=== PATIENT | female | born 1955 | race Hispanic/Latino ===

== ENCOUNTER 2017-02-09 17:04 | Emergency (ER) | payer OTHER ==
[~2017-02-09] VITALS: Ht 162.6 cm; Wt 91.9 kg
[~2017-02-09 17:04] MED LIST: CITA20TA PO; TRAZ-151 PO
[2017-02-09 17:13] VITALS: BP 151/84; PULSE 111; RESP 20; O2SAT 100
[2017-02-09] MEDS ORDERED: Ondansetron 2 mg/mL 2 mL Inj IV PRN (17:25)
[2017-02-09] MEDS ORDERED: 0.9% Sodium Chloride 1,000 ML IV ONE (17:25)
--- NOTE | 2017-02-09 17:25 | ED.REPORT ---
HPI-General Illness Date of Service February 09, 2017 ED Provider: Dr. David Sol MD A 61 year old female with a history of hypertension and depression presents to the ED with a fever that began 3 days ago. Patient was seen at Urgent Care this evening and was directed to the ED after lab work showed signs of infection. Symptoms associated with fever include headache, back pain, fatigue, generalized myalgias, decreased appetite, one episode of diarrhea, nausea, dysuria and leg pain. She denies any abdominal pain. Nursing Notes Stated Complaint: FEVER Chief Complaint: General Complaint Nursing Notes Reviewed: Yes Allergies: Coded Allergies: No Known Allergies (Unverified , 02/09/17) Scheduled Citalopram-Expunged Drug, Do Not Renew! (Citalopram-Expunged Drug, Do Not Renew! ) 20 Mg Tablet 60 MG PO AM Sulfamethoxazole/Trimeth 800-160 mg (Bactrim DS) 1 Each Tablet 1 TABLET PO BID Trazodone-Expunged Drug, Do Not Renew! (Trazodone-Expunged Drug, Do Not Renew!) 50 Mg Tab 50-75 MG PO PRN HS General Time Seen by MD: 17:24 Chief Complaint Fever Hx Obtained From: Patient Arrived By: Walk-in Sudden in Onset?: No Symptom Duration: Since onset Quality: Aching (Generalized myalgias) Radiation: : Does not radiate Severity: Current: Mild Severity: Maximum: Mild Associated with: Reports: Cough, Fever, Nausea, Denies: Abdominal pain, Vomiting Pertinent Negative: Pt denies other symptoms Recent Healthcare: No recent hospitalization, Recent doctor visit Past Medical History Past Medical History Notes: PCP: Dr. Ricky Shcroeder MD Past Medical History 1. Hypertension. 2. Depression. 3. History of nephrolithiasis. 4. Thoracic and lumbar back spine strain. Past Surgical History Reports: Smoking History Never Smoker Social History Other Social History: Good social support, Local resident Ambulatory Status Independent Review of Systems Full Review of Systems Constitutional: Reports: Chills, Fatigue, Fever GI: Reports: Diarrhea, Nausea, Denies: Abdominal pain, Vomiting Female: Reports: Dysuria Musculoskeletal: Reports: Back pain, Extremity pain, Myalgia Complete sys rev & neg: except as marked. Physical Exam Vital Signs Vital Signs Date Time Temp Pulse Resp B/P Pulse Ox O2 Delivery O2 Flow Rate FiO2 02/09/17 21:06 37.7 94 16 151/84 96 Room Air 02/09/17 19:45 37.7 94 16 110/61 96 Room Air 02/09/17 17:13 39.3 111 20 151/84 100 Room Air Initial VS: Reviewed Neck: Supple, Non-tender, Full range of motion Extremities: Vascular intact, Neuro intact, No swelling, No tenderness Neurologic: Alert, Oriented, Nonfocal Psychiatric: Mood/affect normal, Behavior normal, Normal thought content General/Constitutional: Awake, Alert, No acute distress Head / Eyes: Atraumatic, Normocephalic, PERRL, No photophobia ENT: Atraumatic, Airway patent, Mucous membranes moist, Pharynx NL Neck: Atraumatic, Supple, Full range of motion Respiratory / Chest: Atraumatic, Breath sounds NL, Breath sounds = bilat, No respiratory distress Cardiovascular: Heart sounds NL, No gallop, No murmurs, No rubs CARDIO: Occasional premature beats Abdomen: Atraumatic, Soft, Non-tender, BS normoactive Back: Atraumatic BACK: Left CVAT Skin: Atraumatic, Color NL, Warm, Dry, Intact Interpretation & Diagnostics Lab Results Interpretation Result Diagram: 02/09/17 1745 02/09/17 1745 Test 02/09/17 17:45 02/09/17 19:15 White Blood Count 11.8th/mm3 (3.8-10.1) Red Blood Count 4.23mil/mm3 (3.90-5.20) Hemoglobin 12.7g/dL (12.0-15.6) Hematocrit 37.0% (35.0-46.0) Mean Corpuscular Volume 87.5fL (81-100) Mean Corpuscular Hemoglobin 30.0pg (27.0-35.0) Mean Corpuscular Hemoglobin Concent 34.3% (32.0-37.0) Red Cell Distribution Width 12.6% (12.3-15.4) Platelet Count 251bil/L (150-400) Neutrophils (%) (Auto) 78.2% (40-74) Lymphocytes (%) (Auto) 11.1% (14-46) Monocytes (%) (Auto) 10.2% (4-12) Eosinophils (%) (Auto) 0.1% (0-5) Basophils (%) (Auto) 0.1% (0-3) Sodium Level 137mEq/L (134-144) Potassium Level 3.9mEq/L (3.5-5.2) Chloride Level 102mEq/L (97-108) Carbon Dioxide Level 20mmol/L (18-29) Blood Urea Nitrogen 13mg/dL (8-27) Creatinine 1.17mg/dL (0.57-1.00) Estimat Glomerular Filtration Rate 67mL/min (>59) Glucose Level 124mg/dL (60-99) Lactic Acid Level 1.0mmol/L (0.4-2.0) Calcium Level 8.8mg/dL (8.5-10.1) Total Bilirubin 0.6mg/dL (0.0-1.2) Aspartate Amino Transf (AST/SGOT) 12U/L (0-50) Alanine Aminotransferase (ALT/SGPT) 8U/L (0-32) Alkaline Phosphatase 79U/L (25-165) Total Protein 7.4g/dL (6.4-8.4) Albumin 3.4g/dL (3.4-5.0) Urine Color Yellow (YELLOW) Urine Appearance Hazy (CLEAR,HAZY) Urine pH 6.5 (5.0-8.0) Urine Specific [place] 1.020 (1.003-1.035) Urine Protein 100mg/dL (NEG,TRACE) Urine Glucose (UA) Negativemg/dL (NEGATIVE) Urine Ketones Negativemg/dL (NEGATIVE) Urine Occult Blood Large (NEGATIVE) Urine Nitrite Positive (NEGATIVE) Urine Bilirubin Negative (NEGATIVE) Urine Urobilinogen Normalmg/dL (NORMAL) Urine Leukocyte Esterase Small (NEGATIVE) Urine RBC 3-10/hpf (0-2) Urine WBC 6-10/hpf (0-5) Urine Epithelial Cells Few/hpf (NONE-MOD) Urine Crystals None seen (NONE SEEN) Urine Bacteria Moderate/hpf (NONE-FEW) Urine Hyaline Casts None/lpf (NONE) Urine Granular Casts None seen (NONE SEEN) Urine Waxy Casts None seen (NONE SEEN) Urine Red Blood Cell Casts None seen (NONE SEEN) Urine White Blood Cell Casts None seen (NONE SEEN) Urine Mucus None seen (None Seen) Urine Trichomonas None seen (NONE SEEN) Urine Yeast None (NONE SEEN) Urinalysis Comment None Urine Culture Reflexed Indicated X-Ray Chest Interpretation Chest Xray Interpretation: IMPRESSION: Negative chest. Dictated by: Damian Olmedo M.D. on 02/09/2017 at 19:35 Interpretation / Wet Read by: Interpret - Radiologist Re-Eval/Medical Decision Med Decision/Clinical Course 61-year-old female with fever and urinary tract infection. She is nontoxic and a normal lactate not hypotensive able take by mouth has been given Rocephin 2 g IV as well as a liter of normal saline. Discussed admission versus discharge with the patient and her family, she would prefer to go home and I think it is entirely reasonable. We will continue with oral Bactrim for 9 days for 10 days total coverage. She is advised to return to emergency department if worse or not getting better. Time of Eval: 20:45 Patient Status: Condition improved Re-Evaluation/Progress Note: Patient is resting comfortably. She is informed of her lab results and EKG results. All of the patient's questions about her diagnosis and treatment plan are addressed. She understands and agrees with the plan to follow up with PCP. Counseled Regarding: Diagnosis, Lab results, Need for follow-up, When/why to return to ED Discharge & Departure Primary Impression: Urinary tract infection Urinary tract infection type: site unspecified Hematuria presence: without hematuria Qualified Code: N39.0 - Urinary tract infection, site not specified Disposition: Home Discharge Condition All VS Reviewed: Yes Condition: Improved Patient Instructions: Urinary Tract Infection in Women (ED) Additional Instructions: Thank you for trusting us with your care this evening. Your emergency department evaluation today included interview, examination, lab work, EKG and chest X-ray. Your lab work is indicative of a urinary tract infection and your liver function today is reassuring. Please take Bactrim as directed. Use Tylenol as directed for fever. Schedule a follow up appointment with your Dr. Schroeder in the next week for a recheck. Please return to the emergency department if you develop any new or worsening symptoms including any generally weak, fever, chills, nausea, uncontrollable vomiting. [employer] Translate Cherise por confiar en nosotros con plata atencin esta noche. La evaluacin de urgencias hoy incluye entrevista, examen, trabajo de laboratorio, EKG y radiografa de trax. Plata trabajo de laboratorio es indicativo de jamie infeccin del tracto urinario y plata funcin heptica hoy es tranquilizador. Por favor tome a Bactrim jyoti se indica. Use Tylenol jyoti se indica para la fiebre. Programar jamie romaine con el Dr. Schroeder en la prxima semana para jamie revisin de seguimiento. Por favor devuelva al servicio de urgencias si presenta alguno nuevo o empeoramiento sntomas incluyendo cualquier generalmente dbil, fiebre, escalofr os, nuseas, vmitos incontrolables. Referrals: Ricky Schroeder MD (PCP) Scribe Attestation Portions of this note were transcribed by Aracelis Santos. I, Dr. Sol personally performed the history, physical exam and medical decision-making; I reviewed and confirmed the accuracy of the information in the transcribed note. Signed by: Al Olsen, 02/09/171999. copies to: Ricky Schroeder MD, Donald L MD February 09, 2017 17:25 ARACELIS SANTOS February 09, 2017 17:29
[2017-02-09 17:59] LABS: BASOPHILS % (AUTO) 0.1 % (0-3); EOSINOPHILS % (AUTO) 0.1 % (0-5); MONOCYTES % (AUTO) 10.2 % (4-12); Mean Corpuscular Volume 87.5 fL (81-100); NEUTROPHILS % (AUTO) 78.2 % (40-74); Platelet Count 251 bil/L (150-400)
--- NOTE | 2017-02-09 19:42 | DRSVH ---
PROCEDURE: X-RAY CHEST ONE VIEW, PORTABLE ([id number]) INDICATIONS: fever cough TECHNIQUE: One view of the chest was acquired. COMPARISON: Located Within [facility], , CHEST 1VW (PORTABLE), 06/10/2013, 10:58. FINDINGS: Surgical changes and devices: None. Lungs and pleura: No pleural effusions or pneumothorax. Lungs are clear. Mediastinum: Mediastinal contours appear normal. Heart size is normal. Bones and chest wall: No suspicious bony lesions. Overlying soft tissues appear unremarkable. IMPRESSION: Negative chest. Dictated by: Damian Olmedo M.D. on 02/09/2017 at 19:35 Approved by: Damian Olmedo M.D. on 02/09/2017 at 19:35
[2017-02-09 19:45] VITALS: BP 110/61; PULSE 94; RESP 16; O2SAT 96
[2017-02-09 19:52] LABS: APPEARANCE,URINE HAZY (CLEAR,HAZY); COLOR,URINE YELLOW (YELLOW); OCCULT BLOOD,URINE LARGE (NEGATIVE); PH,URINE 6.5 (5.0-8.0); UROBILINOGEN,URINE NORMAL (NORMAL)
[2017-02-09] MEDS ORDERED: cefTRIAXone Inj 2,000 MG in Dextrose 5% Minibag Plus 50 ML IV ONE (20:00)
[2017-02-09] MEDS ORDERED: SULF1TAB7 PO (20:51)
[2017-02-09 21:06] VITALS: BP 151/84; PULSE 94; RESP 16; O2SAT 96
== END 2017-02-09 21:07 | disposition home or self-care (01) ==
LOC: SED 17:04
DX: N39.0 Urinary tract infection, site not specified (principal); B96.20 Unspecified Escherichia coli [E. coli] as the cause of diseases classified elsewhere; R51 Headache; R53.83 Other fatigue; M54.9 Dorsalgia, unspecified; M79.1 Myalgia; R19.7 Diarrhea, unspecified; R11.0 Nausea; M79.606 Pain in leg, unspecified; I10 Essential (primary) hypertension; F32.9 Major depressive disorder, single episode, unspecified; Z87.442 Personal history of urinary calculi
CPT/HCPCS: 36415; 71010; 80053; 81000; 83605; 85025; 87040; 87086; 87088; 87186; 96361; 96365; 96375; 99285; J0696; J2405; J7030